=== PATIENT | male | born 1990 | race African-American/Black ===

== ENCOUNTER → 2021-05-28 16:46 | Outpatient (CLI) | payer BC, SELFPAY ==
--- NOTE | 2021-05-28 | DI.MRI.S_ITS ---
PROCEDURE: MR KNEE RT WO CON INDICATIONS: Pain in right knee TECHNIQUE: Noncontrast sagittal PD fast spin echo and T2 fast spin echo with fat saturation, sagittal 3-D FLASH with fat saturation; coronal T1 spin echo and PD fast spin echo with fat saturation, and axial PD fast spin echo with fat saturation through the knee. COMPARISON: None. FINDINGS: Image quality: Excellent. Menisci: The medial and lateral menisci demonstrate normal morphology and internal signal. The meniscal root ligaments appear intact. Cruciate ligaments: There is suggestion of full-thickness ACL rupture at near its proximal insertion. PCL is intact. Medial structures: Moderate grade MCL sprain/partial-thickness tear is seen. The posterior oblique ligament, semimembranosus tendon insertions, oblique popliteal ligament, and meniscocapsular junction appear intact. Visualized portions of the pes anserinus tendons appear normal. No abnormal bursal fluid. Lateral structures: Significant soft tissue edema and swelling over lateral aspect of right knee is seen. Low to moderate grade LCL sprain/partial-thickness tear is noted. The popliteus tendon appears normal; the popliteofibular ligament appears intact. The posterosuperior and anteroinferior popliteomeniscal fascicles appear intact. The arcuate and fabellofibular ligaments appear intact, on either side of the lateral inferior geniculate artery. Iliotibial band appears normal. Anterior structures: The quadriceps and patellar tendons appear intact. Patellar alignment is normal. No femoral trochlear dysplasia or ventral trochlear prominence. No edema in the infrapatellar fat pad. Bones and cartilage: There is bony contusion involving medial periphery of medial femoral condyle and lateral periphery of lateral femoral condyle weight-bearing portion. Extensive edema involving posterior aspect of proximal tibia extending to posterior aspect of both medial and lateral tibial plateaus is seen with subtle internal linear hypointense signal concerning for subcortical fracture. Mild edema involving inferior portion of patella is also seen without discrete fracture line. Articulating cartilages in medial and lateral femoral tibial compartment as well as patellofemoral compartment appears intact. Joint space: There is moderate amount of joint fluid . Lobulated popliteal cyst is seen measures 1.8 x 2.4 x 4.8 cm in size Normal appearing synovial plicae are incidentally noted. IMPRESSION: 1. Full-thickness ACL rupture near its proximal insertion. PCL is intact. 2. Moderate grade MCL sprain/partial-thickness tear. Low to moderate grade LCL sprain/partial-thickness tear with overlying soft tissue edema and swelling. 3. Bony contusion involving medial periphery of medial femoral condyle and lateral periphery of lateral femoral condyle weight-bearing portion. Suggestion of subcortical fracture involving posterior aspect of proximal tibia extending to both medial and lateral tibial plateau without cortical disruption or depression. Mild bony contusion also seen involving inferior aspect of patella. 4. No gross focal meniscal tear. 5. Moderate amount of joint fluid and a small lobulated popliteal cyst as above. No gross intra-articular loose body. Dictated by: Elijah Plaza M.D. on 05/28/2021 at 18:38 Approved by: Elijah Plaza M.D. on 05/28/2021 at 18:43
== END ==
LOC: MRI 16:49
PROVIDERS: Referring Provider Physician Assistant Medical; Visit Provider Physician Assistant Medical
DX: M25.561 Pain in right knee (principal); S83.411A Sprain of medial collateral ligament of right knee, initial encounter; S83.421A Sprain of lateral collateral ligament of right knee, initial encounter; S83.511A Sprain of anterior cruciate ligament of right knee, initial encounter; S80.01XA Contusion of right knee, initial encounter; M71.21 Synovial cyst of popliteal space [Baker], right knee; X58.XXXA Exposure to other specified factors, initial encounter
CPT/HCPCS: 73721